=== PATIENT | female | born 1965 ===

== ENCOUNTER 2018-01-05 23:29 | Emergency (ER) | payer MEDICAID ==
[2018-01-05 23:47] VITALS: BP 128/84; PULSE 75; TEMP 97.3; O2SAT 97
[2018-01-06] MEDS ORDERED: Sodium Chloride 0.9% 1,000 ML IV ONE (00:53)
--- NOTE | 2018-01-06 00:59 | C.PDOC ---
History Of Present Illness 52 year old female presents to the emergency department with complaints of high blood sugar, particularly a reading which she obtained at home of 400. Patient states that she took insulin at 10pm, and her blood sugar has since subsided to 277 in the ED. Patient denies any pain. Chief Complaint (Nursing): High Blood Sugar History/Exam Limitations: no limitations Onset/Duration Of Symptoms: Hrs Current Diabetic Medications: Insulin Associated Infectious Symptoms: denies: Other (pain) Past Medical History Vital Signs: Last Vital Signs Temp 97.3 F L 01/05/18 23:40 Pulse 75 01/05/18 23:40 Resp 20 01/05/18 23:40 BP 128/84 01/05/18 23:40 Pulse Ox 97 01/06/18 02:21 - Medical History PMH: Anxiety, Depression, Diabetes, HTN Surgical History: No Surg Hx Family History: States: No Known Family Hx - Social History Hx Tobacco Use: Yes Hx Alcohol Use: No Hx Substance Use: No - Immunization History Hx Tetanus Toxoid Vaccination: No Hx Influenza Vaccination: Yes Hx Pneumococcal Vaccination: Yes Review Of Systems Except As Marked, All Systems Reviewed And Found Negative. Musculoskeletal: Negative for: Other (pain) Physical Exam - Physical Exam Appears: Non-toxic, No Acute Distress Cardiovascular: Rhythm Regular Respiratory: Normal Breath Sounds Gastrointestinal/Abdominal: Normal Exam, Soft, No Tenderness ED Course And Treatment - Laboratory Results Result Diagrams: 01/06/18 01:07 01/06/18 01:07 O2 Sat by Pulse Oximetry: 97 (RA) Pulse Ox Interpretation: Normal Medical Decision Making Medical Decision Making: Plan: BMP CBC Glucose NaCl IV Fluids Urinalysis Disposition Counseled Patient/Family Regarding: Diagnosis - Disposition Referrals: [facility] [Outside] Disposition: HOME/ ROUTINE Disposition Time: 02:20 Condition: STABLE Instructions: Type 1 Diabetes, Hyperglycemia, Adult (DC) Forms: [facility] ([facility]), Gen Discharge Inst Swedish - POA Present On Arrival: None - Clinical Impression Clinical Impression: Hyperglycemia, Diabetes - Scribe Statement The provider has reviewed the documentation as recorded by the Scribe (Nikos Gr) Provider Attestation: All medical record entries made by the Scribe were at my direction and personally dictated by me. I have reviewed the chart and agree that the record accurately reflects my personal performance of the history, physical exam, medical decision making, and the department course for this patient. I have also personally directed, reviewed, and agree with the discharge instructions and disposition.
[2018-01-06 01:01] LABS: SQUAMOUS EPITHIAL 1 /hpf (0-5); URINE BILIRUBIN NEGATIVE (NEGATIVE); URINE BLOOD NEGATIVE (NEGATIVE); URINE CLARITY Clear (Clear); URINE COLOR Yellow (YELLOW); URINE GLUCOSE (UA) 3+ mg/dL (Normal); URINE LEUKOCYTE ESTERASE NEG Leu/uL (Negative); URINE PROTEIN NEGATIVE (NEGATIVE); URINE UROBILINOGEN NORMAL mg/dL (0.2-1.0)
[2018-01-06] MEDS ORDERED: Sodium Chloride 0.9% 1,000 ML ONE (01:04)
[2018-01-06 01:19] LABS: BASO # 0.1 K/uL (0.0-0.2); BASO % 0.9 % (0.0-2.0); EOS # 0.2 K/uL (0.0-0.7); EOS % 2.6 % (0.0-4.0); HEMOGLOBIN 13.6 g/dL (11.0-16.0); LYMPH # 3.9 K/uL (1.0-4.3); LYMPH % 43.8 % (20.0-40.0); MEAN CELL VOLUME 85.1 fL (81.0-99.0); MEAN CORPUSCULAR HEMOGLOBIN 28.5 pg (27.0-31.0); MEAN CORPUSCULAR HGB CONC 33.5 g/dL (33.0-37.0); MEAN PLATELET VOLUME 8.6 fL (7.2-11.7); MONO # 0.6 K/uL (0.0-0.8); MONO % 6.4 % (0.0-10.0); NEUT # 4.1 K/uL (1.8-7.0); NEUT % 46.3 % (50.0-75.0); RBC 4.75 Mil/uL (3.80-5.20); RED CELL DISTRIBUTION WIDTH 14.2 % (11.5-14.5); WHITE BLOOD COUNT 8.8 K/uL (4.8-10.8)
[2018-01-06 01:24] LABS: BLOOD UREA NITROGEN 10 mg/dL (7-17); CALCIUM 8.9 mg/dl (8.6-10.4); GFR AFRICAN-AMERICAN > 60; GFR NON-AFRICAN AMERICAN > 60
[2018-01-06 02:39] VITALS: RESP 18
== END 2018-01-06 02:33 | disposition home or self-care (01) ==
LOC: C.ER 23:29
DX: E11.65 Type 2 diabetes mellitus with hyperglycemia (principal); Z79.4 Long term (current) use of insulin
CPT/HCPCS: 80048; 81001; 82948; 85025; 96360; 99284; J7040